=== PATIENT | female | born 1990 | race Hispanic/Latino ===

== ENCOUNTER 2019-07-18 18:36 | Emergency (ER) | payer MEDICAID ==
[2019-07-18] MEDS ORDERED: ACETAMINOPHEN EXTRA STRENGTH 500 MG TABLET ONE (18:59)
[2019-07-18 19:26] LABS: RAPID GROUP A STREP NEGATIVE (NEGATIVE)
[2019-07-18 20:05] LABS: APPEARANCE,URINE Clear (CLEAR); BILIRUBIN,URINE Negative (NEGATIVE); COLOR,URINE Yellow (YELLOW); GLUCOSE, URINE (UA) Negative (NEGATIVE); KETONES,URINE Trace mg/dL (NEGATIVE); LEUKOCYTE ESTERASE ,URINE Negative (NEGATIVE); NITRATE,URINE Negative (NEGATIVE); OCCULT BLOOD,URINE Negative (NEGATIVE); PROTEIN,URINE Negative (NEGATIVE); UROBILINOGEN,URINE 0.2 mg/dL (0.2-1.0)
[2019-07-18 20:15] LABS: HCG,QUAL RESULT NEGATIVE (NEGATIVE)
[2019-07-18 20:27] LABS: BACTERIA,URINE Rare /HPF (None Seen); RBC,URINE 0-1 /HPF (0-1); WBC,URINE 0-1 /HPF (0-1)
[2019-07-18 20:28] LABS: SQUAMOUS EPITHELIAL CELL,UR Rare /HPF (0-2); YEAST,URINE BUDDING Rare /HPF (None Seen)
== END 2019-07-18 20:11 | disposition home or self-care (01) ==
LOC: EDH 18:36
DX: J11.1 Influenza due to unidentified influenza virus with other respiratory manifestations (principal)
CPT/HCPCS: 81001; 81003; 81025; 87804; 87880

== ENCOUNTER 2020-07-01 06:32 | Emergency (ER) | payer MEDICAID | END 2020-07-01 10:03 | disposition home or self-care (01) | LOC: EDH 06:32 | DX: J02.9 Acute pharyngitis, unspecified (principal) | CPT/HCPCS: 71046; 87804; 87880 ==

== ENCOUNTER 2020-11-29 03:20 | Emergency (ER) | payer MEDICAID ==
[~2020-11-29] VITALS: Ht 147.3 cm; Wt 76.2 kg
[2020-11-29 03:41] VITALS: BP 124/69
[2020-11-29] MEDS ORDERED: KETOROLAC 60 MG VIAL (30MG/ML) IM ONE (04:15)
[2020-11-29] MEDS ORDERED: IBUP-2070 PO (04:20)
== END 2020-11-29 04:41 | disposition home or self-care (01) ==
LOC: EDH 03:53
DX: L08.89 Other specified local infections of the skin and subcutaneous tissue (principal); T50.Z95A Adverse effect of other vaccines and biological substances, initial encounter; M79.622 Pain in left upper arm; E66.9 Obesity, unspecified; Y92.89 Other specified places as the place of occurrence of the external cause
CPT/HCPCS: 96372; 99283; J1885

== ENCOUNTER 2021-01-08 23:06 | Emergency (ER) | payer MEDICAID ==
[~2021-01-08] VITALS: Ht 149.9 cm; Wt 76.2 kg
[~2021-01-08 23:06] MED LIST: IBUP-2070 PO
[2021-01-08 23:30] VITALS: BP 120/70
[2021-01-09] MEDS ORDERED: ONDANSETRON 4MG INJ IVP ONE
[2021-01-09] MEDS ORDERED: 0.9%NACL 1000ML 1,000 ML IV ONE
[2021-01-09 00:11] LABS: APPEARANCE,URINE Clear (CLEAR); BILIRUBIN,URINE Negative (NEGATIVE); COLOR,URINE Yellow (YELLOW); GLUCOSE, URINE (UA) Negative (NEGATIVE); KETONES,URINE Trace mg/dL (NEGATIVE); LEUKOCYTE ESTERASE ,URINE Negative (NEGATIVE); NITRATE,URINE Negative (NEGATIVE); OCCULT BLOOD,URINE Negative (NEGATIVE); PH,URINE 7.5 (5.0-8.0); PROTEIN,URINE Negative (NEGATIVE)
[2021-01-09 00:15] LABS: CREATININE 0.6 mg/dL (0.5-1.5); POTASSIUM 4.4 mmol/L (3.5-5.1)
[2021-01-09 00:19] LABS: ALBUMIN 3.6 g/dL (3.5-5.0); BILIRUBIN,TOTAL 0.3 mg/dL (0.2-1.0); TOTAL PROTEIN, SERUM 7.8 g/dL (6.0-8.3)
[2021-01-09 00:20] LABS: HCG,QUAL RESULT NEGATIVE (NEGATIVE)
[2021-01-09] MEDS ORDERED: KETOROLAC 30MG VIAL (30MG/ML) IV ONE (00:30)
[2021-01-09] MEDS ORDERED: METOCLOPRAMIDE 10 MG/2 ML VIAL IVP ONE (00:30)
[2021-01-09 00:31] LABS: BASOPHILS % (AUTO) 0.6 % (0.0-5.0); HEMATOCRIT 36.3 % (36-48); LYMPHOCYTES % (AUTO) 43.9 % (21.0-51.0); MEAN CORPUSCULAR HEMOGLOBIN 28.8 pg (27.0-33.0); MEAN CORPUSCULAR VOLUME 90.1 fL (79-99); MONOCYTES % (AUTO) 6.5 % (3.0-13.0); NEUTROPHILS % (AUTO) 46.8 % (40.0-77.0); PLATELET COUNT (AUTO) 165 K/uL (130-400); RED BLOOD CELL COUNT(AUTO) 4.03 MIL/uL (4.00-5.50); RED CELL DISTRIBUTION WIDTH 12.5 % (11.0-15.5); WHITE BLOOD COUNT (AUTO) 8.2 K/uL (4.8-10.8)
[2021-01-09] MEDS ORDERED: ONDA4TAB10 PO (00:52)
[2021-01-09] MEDS ORDERED: DICY20TA2 PO (00:52)
[2021-01-09] MEDS ORDERED: METO-296 PO (00:52)
[2021-01-09 01:29] VITALS: BP 120/67
== END 2021-01-09 01:30 | disposition home or self-care (01) ==
LOC: EDH 23:06
DX: R10.32 Left lower quadrant pain (principal); R11.0 Nausea; Z79.899 Other long term (current) drug therapy
CPT/HCPCS: 36415; 80053; 81003; 81025; 83690; 85025; 87088; 96374; 99283; J2405; J7030

== ENCOUNTER 2021-06-18 01:48 | Emergency (ER) | payer MEDICAID ==
[~2021-06-18] VITALS: Ht 149.9 cm; Wt 74.8 kg
[~2021-06-18 01:48] MED LIST changes: +DICY20TA2 PO; +METO-296 PO; +ONDA4TAB10 PO
[2021-06-18 01:51] VITALS: BP 102/54
[2021-06-18 02:58] LABS: APPEARANCE,URINE Clear (CLEAR); BILIRUBIN,URINE Negative (NEGATIVE); COLOR,URINE Yellow (YELLOW); GLUCOSE, URINE (UA) TRACE mg/dL (NEGATIVE); KETONES,URINE Negative (NEGATIVE); LEUKOCYTE ESTERASE ,URINE Negative (NEGATIVE); NITRATE,URINE Negative (NEGATIVE); OCCULT BLOOD,URINE Negative (NEGATIVE); PH,URINE 6.5 (5.0-8.0); PROTEIN,URINE Negative (NEGATIVE)
[2021-06-18 03:20] LABS: BACTERIA,URINE None Seen /HPF (None Seen); RBC,URINE None Seen /HPF (0-1); WBC,URINE None Seen /HPF (0-1)
== END 2021-06-18 07:46 | disposition left against medical advice (07) ==
LOC: EDH 01:48
DX: O26.891 Other specified pregnancy related conditions, first trimester (principal); R10.30 Lower abdominal pain, unspecified; Z53.21 Procedure and treatment not carried out due to patient leaving prior to being seen by health care provider; Z3A.01 Less than 8 weeks gestation of pregnancy
CPT/HCPCS: 81001